=== PATIENT | female | born 1985 | race Caucasian/White ===

== ENCOUNTER 2022-01-22 17:06 | Emergency (ER) | payer OTHER, SELFPAY ==
[2022-01-22 16:59] VITALS: BP 114/72; PULSE 69; RESP 12; TEMP 37.4; O2SAT 98
--- NOTE | 2022-01-22 17:14 | ED_ITS ---
HPI - General Adult General Chief complaint: Dizziness Stated complaint: dizzy, abd pain History of Present Illness HPI narrative: 36-year-old female presented to the emergency room via EMS for evaluation of dizziness, abdominal cramping, and possible dehydration. Patient admits to [place] [employer] outside watching her daughter play softball for the majority of the day, when about an hour prior to arrival she began experiencing abdominal cramping and some dizziness. Patient states she has been limiting her fluid intake throughout the day. Denies any nausea or vomiting. Denies any syncopal episodes or loss of consciousness. Patient states that she took some ibuprofen approximately 2 hours before the EMS was called to alleviate her abdominal cramping. Denies any diarrhea or fevers. Related Data Allergies Allergy/AdvReac Type Severity Reaction Status Date / Time No Known Allergies Allergy Verified 01/22/22 17:19 Review of Systems Review of Systems: CONSTITUTIONAL: Denies fever, chills, or sweats. EYES: Denies visual changes, redness, or discharge. ENT: Denies rhinorrhea, congestion, sore throat, or otalgia. CARDIOVASCULAR: Denies chest pain, palpitations, or edema. RESPIRATORY: Denies cough or dyspnea. GASTROINTESTINAL: Reports abdominal cramping GENITOURINARY: Denies dysuria or hematuria. SKIN: Denies rash or itching. MUSCULOSKELETAL: Denies back pain, joint pain, or myalgia. NEUROLOGIC: Reports headache and dizziness PSYCHIATRIC: Denies anxiety or depression. Exam 2 Narrative: GENERAL: Well-appearing, well-nourished, no physical limitations, and in no acute distress. HEAD: Normocephalic, atraumatic. EYES: Conjunctivae normal, PERRLA and EOMI. ENT: External nose normal, Nares clear, no rhinorrhea or epistaxis. Mucous membranes dry. NECK: Supple. CHEST: Clear to auscultation. No respiratory distress. No wheezes rales or rhonchi. No tenderness. HEART: Regular rate and rhythm. No murmur heard. Normal peripheral pulses. ABDOMEN: Soft, suprapubic tenderness, nondistended, normal active bowel sounds. EXTREMITIES: Normal range of motion. No edema. No clubbing or cyanosis SKIN: Warm, dry, no rash. No noted wounds NEURO: No focal deficits. Alert and oriented x3. MAEW. CN's II-XI intact bilaterally, normal gait PSYCH: Cooperative. Normal mood and affect. Medical Decision Making MDM Narrative Medical decision making narrative: 36-year-old female presented the emergency room with concerns for dehydration. Lab work looked reassuring. Patient did have a +2 ketones likely due to the dehydration. Patient was given 2 L of fluid and has since urinated multiple times. Patient is requesting to be discharged home. Discharge Plan Discharge Clinical Impression: Acute dehydration Patient Disposition: Home, Self-Care Condition: Stable Instructions: Antibiotic Form Additional Instructions: Recommend pushing fluids. Follow-up/Referrals: PHYSICIAN,SEISMOGRAPHER [Primary Care Provider] - Time of Disposition: 18:54
[2022-01-22] MEDS: SODIUM CHLORIDE 0.9% IV 1,000 ML 999 ML IV CONT ×2 (17:25→19:17)
[2022-01-22 17:31] LABS: Basophils Percent Auto 0.3 % (0.2-1.2); Eosinophils Absolute Auto 0.1 K/mm3 (0-0.3); Eosinophils Percent Auto 0.4 % (0-4.4); Hematocrit 43.9 % (37.0-47.0); Hemoglobin 15.1 g/dL (12.0-15.0); Immature Granulocyte Absolute 0.05 K/mm3 (0.00-0.031); Immature Granulocyte Percent A 0.4 % (0-0.5); Lymphocytes Absolute Auto 1.23 K/mm3 (0.9-3.2); Lymphocytes Percent Auto 9.3 % (18.3-44.2); Mean Corpuscular HGB Conc 34.4 g/dl (32-36); Mean Platelet Volume 9.6 fl (7.4-10.4); Monocytes Absolute Auto 0.8 K/mm3 (0.1-0.6); Monocytes Percent Auto 5.8 % (2.6-8.5); Neutrophils Absolute Auto 11.1 K/mm3 (1.3-6.7); Neutrophils Percent Auto 83.8 % (45.5-73.1); Platelet Count Result 289 k/mm3 (150-375); Red Blood Count 4.72 M/mm3 (4.2-5.4); Red Cell Distribution Width 12.3 % (11.5-14.5); White Blood Count 13.2 K/mm3 (4.5-10.0)
[2022-01-22 17:42] LABS: Lipase 95 U/L (23-300)
[2022-01-22 17:43] LABS: Alanine Aminotransferase 19 U/L (6-35); Alkaline Phosphatase 93 U/L (38-126); Anion Gap 16 mmol/L (8-16); Aspartate Amino Transferase 27 U/L (14-36); Bilirubin,Total 0.7 mg/dL (0.2-1.3); Blood Urea Nitrogen 12 mg/dL (7-17); Calcium 9.6 mg/dL (8.4-10.2); Carbon Dioxide 21 mmol/L (22-30); Chloride 104 mmol/L (98-107); Estimated Glomerular Filt Rate > 60; Glucose 116 mg/dL (65-110); Potassium 3.8 mmol/L (3.4-5.0); Sodium 141 mmol/L (137-145)
[2022-01-22 18:01] LABS: Appearance Urine Clear (Clear); Bilirubin Urine Negative (Negative); Blood Urine Negative (Negative); Color Urine Yellow (Yellow); Glucose Urine UA Negative (Negative); Ketones Urine 2+ mg/dL (Negative); Leukocyte Esterase Ur Negative LEU/UL (Negative); Nitrate Urine Negative (Negative); Protein Urine Negative (Negative); Specific Grav Ur 1.015 (1.001-1.035); Urobilinogen Urine 0.2 mg/dL (<2.0)
[2022-01-22 18:03] LABS: Bacteria Urine Trace /hpf; Mucus Urine Rare /lpf; RBC Urine 0-2 /hpf (0-2); Squamous Epithelial Cell Urine Occasional /hpf (Few); WBC Urine 0-3 /hpf
[2022-01-22 18:13] LABS: Add Urine Microscopic? YES
[2022-01-22] MEDS: ONDANSETRON INJ 4 MG/2 ML VIAL (19:17)
== END 2022-01-22 19:19 | disposition home or self-care (01) ==
PROVIDERS: Emergency Provider Nurse Practitioner Family
DX: E86.0 Dehydration (principal)
CPT/HCPCS: 36415; 80053; 81001; 83690; 85025; 96361; 96374; 99284; J2405; J7030